=== PATIENT | female | born 1990 | race Hispanic/Latino ===

== ENCOUNTER 2024-05-21 20:50 | Inpatient (IN) | payer BC ==
[2024-05-21 23:34] VITALS: BMI 32.6
[2024-05-21] MEDS ORDERED: fentaNYL 50 mcg/mL 1 mL Vial SLOW IVP PRN (23:35)
[2024-05-21] MEDS ORDERED: hydrALAZINE 20 MG/ML VIAL SLOW IVP PRN (23:35)
[2024-05-21] MEDS ORDERED: HYDROcodone/Acetaminophen 5/325 mg Tablet PO PRN ×2 (23:35)
[2024-05-21] MEDS ORDERED: Promethazine HCl 25 MG/ML VIAL IM PRN (23:35)
[2024-05-21] MEDS ORDERED: Ondansetron PF 4 MG/2 ML Vial IVP PRN (23:35)
[2024-05-21] MEDS ORDERED: Oxytocin 30 units/NS 500 ML 500 ML IV SCH (23:35)
[2024-05-21] MEDS ORDERED: Lidocaine 1% (PF) 30 ML VIAL SC PRN (23:35)
[2024-05-21] MEDS ORDERED: Penicillin G Potassium 5 MILL.UNITS in Sodium Chloride 0.9% 100 ML IVPB SCH (23:35)
[2024-05-22 00:12] LABS: Hematocrit 36.8 % (34.9-44.5); Hemoglobin 12.5 g/dL (12.0-15.5); Mean Corpuscular Hemoglobin 29.4 pg (27.0-33.0); Mean Corpuscular Volume 86.6 fL (81.6-98.3); Mean Platelet Volume 11.2 fL (7.4-10.4); Platelet Count 262 10x3/uL (150-450); RBC Distribution Width 13.8 % (11.5-14.5); Red Blood Cell (RBC) Count 4.25 10x6/uL (3.90-5.03); White Blood Cell (WBC) Count 14.5 10x3/uL (3.5-10.5)
[2024-05-22 00:46] LABS: HBsAg Index 0.22 S/CO (0-0.99); Hep B Surf Ag - L&D Non-Reactive S/CO (NonReactive)
[2024-05-22 00:48] LABS: Syphilis Antibody Nonreactive (Nonreactive); Syphilis Antibody Index 0.12 S/CO (<1.00 Non-Reactive)
[2024-05-22] MEDS: Misoprostol 100 MCG TAB VAG SCH ×3 (01:05→07:19)
[2024-05-22] MEDS: Penicillin G 2.5 MILL.units 2.5 MILL.UNITS in Premix 1 BAG IVPB SCH (07:07)
[2024-05-22] MEDS: Lactated Ringer's 1,000 ML IV SCH (07:07)
[2024-05-22] MEDS: Penicillin G Potassium 5 MILL.UNITS in Sodium Chloride 0.9% 100 ML IVPB SCH (07:19)
[2024-05-22] MEDS: fentaNYL/Ropivacaine Epidural 100 ML ONE (12:08)
[2024-05-22] MEDS ORDERED: Ondansetron PF 4 MG/2 ML Vial IVP PRN ×2 (13:47→23:12)
[2024-05-22] MEDS ORDERED: Promethazine HCl 25 MG/ML VIAL IM PRN (13:47)
[2024-05-22] MEDS ORDERED: Lactated Ringer's 500 ML IV PRN (13:47)
[2024-05-22] MEDS ORDERED: ePHEDrine Sulfate 50 MG/10 ML VIAL SLOW IVP PRN (13:47)
[2024-05-22] MEDS ORDERED: Moisturizing Cream (Eucerin) 113 GM JAR TOP PRN (13:47)
[2024-05-22] MEDS ORDERED: Naloxone HCl 0.4 mg/ml Vial IVP PRN ×2 (13:47)
[2024-05-22] MEDS ORDERED: diphenhydrAMINE 50 MG/ML VIAL IVP PRN (13:47)
[2024-05-22] MEDS ORDERED: Communication Order-Pharmacy FS SCH (14:00)
[2024-05-22] MEDS ORDERED: fentaNYL 2 mcg/Ropivacaine 0.2% Epidural 100 ML CADD EPIDURAL SCH (14:00)
[2024-05-22] MEDS: Oxytocin 30 units/NS 500 ML 500 ML IV SCH (14:18)
[2024-05-22] MEDS: Ibuprofen 800 MG TAB PO PRN (21:07)
[2024-05-22] MEDS: Acetaminophen 325 MG TAB PO PRN (21:07)
[2024-05-22] MEDS ORDERED: Preparation H Ointment 28 GM TUBE PR PRN (23:12)
[2024-05-22] MEDS ORDERED: Milk Of Magnesia 30 ML UDCUP PO PRN (23:12)
[2024-05-22] MEDS ORDERED: diphenhydrAMINE 25 MG CAP PO PRN (23:12)
[2024-05-22] MEDS ORDERED: hydrALAZINE 20 MG/ML VIAL SLOW IVP PRN (23:12)
[2024-05-22] MEDS ORDERED: Lanolin Ointment 7 GM TUBE TOP PRN (23:12)
[2024-05-22] MEDS ORDERED: Benzocaine-Menthol 82.5 ML CAN TOP PRN (23:12)
[2024-05-22] MEDS ORDERED: Boostrix 0.5 ML (Tdap) VIAL (>/=7 yrs of age) IM ONE (23:12)
[2024-05-22] MEDS ORDERED: HYDROcodone/Acetaminophen 5/325 mg Tablet PO PRN ×2 (23:12)
[2024-05-22] MEDS ORDERED: Oxytocin 30 units/NS 500 ML 500 ML IV SCH (23:12)
[2024-05-22] MEDS ORDERED: Bisacodyl 10 MG SUPP PR PRN (23:12)
[2024-05-22] MEDS: Methylergonovine 0.2 MG/ML VIAL ONE (23:16)
[2024-05-22] MEDS: Methylergonovine 0.2 MG/ML VIAL IM SCH (23:16)
[2024-05-23] MEDS: Ibuprofen 800 MG TAB PO SCH (05:33)
[2024-05-23] MEDS: Docusate 100 MG CAP PO SCH ×2 (05:48→08:48)
[2024-05-23] MEDS: Ferrous Sulfate 325 MG TAB PO SCH (07:47)
[2024-05-23] MEDS: Prenatal Vitamin 1 TAB PO SCH (08:48)
[2024-05-24 08:11] VITALS: BP 112/55; TEMP 97.9
== END 2024-05-24 13:59 | disposition home or self-care (01) | DRG 768 ==
LOC: CSHLD 20:50 → CSHPP 05-22 22:50
PROVIDERS: ADMIT Obstetrics & Gynecology; ATTEND Obstetrics & Gynecology
PROC: 10E0XZZ Delivery of Products of Conception, External Approach (ICD-10-PCS; principal; 2024-05-22)
PROC: 0W3R7ZZ Control Bleeding in Genitourinary Tract, Via Natural or Artificial Opening (ICD-10-PCS; 2024-05-22)
PROC: 0HQ9XZZ Repair Perineum Skin, External Approach (ICD-10-PCS; 2024-05-22)
PROC: 10907ZC Drainage of Amniotic Fluid, Therapeutic from Products of Conception, Via Natural or Artificial Opening (ICD-10-PCS; 2024-05-22)
DX: O48.0 Post-term pregnancy (principal); Z37.0 Single live birth; Z3A.40 40 weeks gestation of pregnancy; Z98.890 Other specified postprocedural states; O99.824 Streptococcus B carrier state complicating childbirth; O70.0 First degree perineal laceration during delivery
CPT/HCPCS: 36415; 51702; 85027; 86780; 86850; 86900; 86901; 87340; J2540; J2590; J7120